=== PATIENT | male | born 1935 | race Caucasian/White ===

== ENCOUNTER 2017-11-16 08:10 | Inpatient (IN) | payer OTHER ==
[~2017-11-16] VITALS: Ht 172.7 cm; Wt 57.7 kg
[~2017-11-16 08:10] MED LIST: ADULT ASPIRIN R81 MG PO; Folvite PO; KEPPRA500 MG PO; LOW DOSE ASPIRI81 M2 PO; OMEPRAZOLE20 MG PO; PROVENTIL HFA6.7 GM IH; PriLOSEC PO; TERAZOSIN HCL2 MG PO; Theragran PO; ZOCOR20 MG PO
[2017-11-16 09:55] LABS: BASOPHIL (%) 0.2 % (0-1); EOSINOPHIL (%) 0.6 % (0-5); EOSINOPHIL COUNT 0.1 K/uL (0-0.3); HEMATOCRIT 43.4 % (38.0-50.0); HEMOGLOBIN 14.3 G/DL (12.5-16.6); IMMATURE GRANULOCYTE (%) 0.2 % (0.0-0.7); LYMPHOCYTE (%) 9.4 % (15-42); LYMPHOCYTE COUNT 1.2 K/uL (1.0-2.8); MCH 30.6 PG (29.0-34.0); MCHC 32.9 G/DL (30.0-36.0); MCV 92.7 FL (86-99); MONOCYTE (%) 7.6 % (3-12); MONOCYTE COUNT 0.9 K/uL (0-0.8); NEUTROPHIL COUNT 10.1 K/uL (1.8-6.4); PLATELET COUNT 322 K/uL (156-360); RBC DIS.WIDTH-CV 13.5 % (11.8-14.6); RBC DIS.WIDTH-SD 45.8 % (39-53); RED BLOOD COUNT 4.68 M/uL (4.00-5.50); WHITE BLOOD COUNT 12.3 K/uL (4.1-10.2)
[2017-11-16 10:01] LABS: INTER. NORMALIZED RATIO 1.2
[2017-11-16 10:04] LABS: PTT 30.8 SEC (25-37)
[2017-11-16 10:08] LABS: CHLORIDE 109 mEq/L (99-109); POTASSIUM 4.5 mEq/L (3.7-5.4); SODIUM 145 mEq/L (136-147)
[2017-11-16 10:10] LABS: GLUCOSE 110 mg/dL (70-99)
[2017-11-16 10:14] LABS: CREATININE 1.1 mg/dL (0.6-1.3); GFR ESTIMATE (CALCULATED) > 59 mL/min/ (58.99-99999); UREA NITROGEN (BUN) 14 mg/dL (9-23)
[2017-11-16 10:20] LABS: TROP-I INTERPRETATION NEGATIVE; TROPONIN-I < 0.01 ng/mL (0.0-0.30)
[2017-11-16 14:52] LABS: THYROTROPIN (TSH) 1.2 MIU/L (0.4-5.5)
[2017-11-16] MEDS ORDERED: SPIRIVA1 INHALATI IH (15:20)
[2017-11-16] MEDS ORDERED: ATARAX10 MG PO (15:20)
[2017-11-16] MEDS ORDERED: GUAIFENESIN200 M2 PO (15:20)
[2017-11-16] MEDS ORDERED: B-1100 MG PO (15:21)
[2017-11-16] MEDS ORDERED: SYMBICORT60 INHALAT IH (15:21)
[2017-11-16] MEDS ORDERED: TYLENOL REGULA325 MG PO (15:21)
[2017-11-16] MEDS ORDERED: PAROXETINE HCL40 MG PO (15:21)
[2017-11-16] MEDS ORDERED: SIMVASTATIN20 MG PO (15:21)
[2017-11-16] MEDS ORDERED: ZANTAC150 MG PO (15:21)
[2017-11-16] MEDS ORDERED: STOOL SOFTENER240 MG PO (15:22)
[2017-11-16] MEDS ORDERED: THEO-24400 MG PO (15:22)
[2017-11-16] MEDS ORDERED: HYTRIN2 MG PO (15:22)
[2017-11-16] MEDS ORDERED: KEPPRA500 MG PO (15:23)
[2017-11-16] MEDS ORDERED: CLARITIN,ALAVAR10 MG PO (15:23)
[2017-11-16 15:42] VITALS: BP 131/80
[2017-11-16 16:17] LABS: TROP-I INTERPRETATION NEGATIVE; TROPONIN-I 0.02 ng/mL (0.0-0.30)
[2017-11-16 19:20] VITALS: BP 136/83
[2017-11-16 21:57] LABS: TROP-I INTERPRETATION NEGATIVE; TROPONIN-I 0.02 ng/mL (0.0-0.30)
[2017-11-17 00:08] VITALS: BP 112/66
[2017-11-17 03:18] VITALS: BP 92/56
[2017-11-17 06:48] LABS: CHLORIDE 105 MEQ/L (99-109); CREATININE 1.2 MG/DL (0.6-1.3); GFR ESTIMATE (CALCULATED) > 59 mL/min/ (58.99-99999); GLUCOSE 111 mg/dL (70-99); POTASSIUM 4.3 MEQ/L (3.7-5.4); SODIUM 142 MEQ/L (136-147); UREA NITROGEN (BUN) 18 mg/dL (9-23)
[2017-11-17 11:27] VITALS: BP 93/55
[2017-11-17 12:54] LABS: BASOPHIL (%) 0.5 % (0-1); BASOPHIL COUNT 0.1 K/uL (0-0.1); EOSINOPHIL (%) 0.9 % (0-5); EOSINOPHIL COUNT 0.1 K/uL (0-0.3); HEMATOCRIT 40.5 % (38.0-50.0); HEMOGLOBIN 12.5 G/DL (12.5-16.6); IMMATURE GRANULOCYTE (%) 0.2 % (0.0-0.7); LYMPHOCYTE COUNT 1.5 K/uL (1.0-2.8); MCHC 30.9 G/DL (30.0-36.0); MONOCYTE (%) 10.4 % (3-12); MONOCYTE COUNT 1.1 K/uL (0-0.8); NEUTROPHIL COUNT 7.7 K/uL (1.8-6.4); PLATELET COUNT 309 K/uL (156-360); RBC DIS.WIDTH-SD 49.4 % (39-53); RED BLOOD COUNT 4.17 M/uL (4.00-5.50); WHITE BLOOD COUNT 10.5 K/uL (4.1-10.2)
[2017-11-17 12:55] LABS: MCV 97.1 FL (86-99)
[2017-11-17 16:14] VITALS: BP 97/60
[2017-11-17 19:35] VITALS: BP 101/61
[2017-11-18 00:17] VITALS: BP 96/49
[2017-11-18 04:34] VITALS: BP 106/70
[2017-11-18 07:08] VITALS: BP 105/55
[2017-11-18 11:19] VITALS: BP 103/61
[2017-11-18 15:32] VITALS: BP 104/69
[2017-11-18 19:45] VITALS: BP 126/67
[2017-11-19] VITALS (7 sets, daily range): BP systolic 98–124; BP diastolic 56–78
[2017-11-19 05:52] LABS: BASOPHIL (%) 0.1 % (0-1); EOSINOPHIL (%) 0 % (0-5); HEMATOCRIT 36.5 % (38.0-50.0); HEMOGLOBIN 11.9 G/DL (12.5-16.6); IMMATURE GRANULOCYTE (%) 0.3 % (0.0-0.7); LYMPHOCYTE (%) 8.6 % (15-42); LYMPHOCYTE COUNT 0.9 K/uL (1.0-2.8); MCH 30.2 PG (29.0-34.0); MCHC 32.6 G/DL (30.0-36.0); MCV 92.6 FL (86-99); MONOCYTE (%) 7.1 % (3-12); MONOCYTE COUNT 0.7 K/uL (0-0.8); NEUTROPHIL (%) 83.9 % (45-76); NEUTROPHIL COUNT 8.4 K/uL (1.8-6.4); PLATELET COUNT 277 K/uL (156-360); RBC DIS.WIDTH-CV 13.5 % (11.8-14.6); RBC DIS.WIDTH-SD 46.1 % (39-53); RED BLOOD COUNT 3.94 M/uL (4.00-5.50)
[2017-11-19 06:11] LABS: ALBUMIN 3.2 G/DL (3.2-4.8); ALKALINE PHOSPHATASE 41 IU/L (3-129); ALT (GPT) 8 IU/L (3-49); AST (GOT) 10 IU/L (2-34); CHLORIDE 101 MEQ/L (99-109); CREATININE 1.1 MG/DL (0.6-1.3); GFR ESTIMATE (CALCULATED) > 59 mL/min/ (58.99-99999); GLUCOSE 137 mg/dL (70-99); POTASSIUM 4.7 MEQ/L (3.7-5.4); SODIUM 137 MEQ/L (136-147); TOTAL BILIRUBIN 0.4 MG/DL (0.0-1.0); TOTAL PROTEIN 5.7 G/DL (6.4-8.3); UREA NITROGEN (BUN) 27 mg/dL (9-23)
[2017-11-20 03:25] VITALS: BP 110/71
[2017-11-20 07:37] VITALS: BP 114/71
[2017-11-20 11:46] VITALS: BP 124/74
[2017-11-20] MEDS ORDERED: LOPRESSOR25 MG PO (15:17)
[2017-11-20] MEDS ORDERED: POLYETHYLENE GL17 GM PO (15:17)
[2017-11-20] MEDS ORDERED: LEVOFLOXACIN500 MG PO (15:17)
== END 2017-11-20 17:32 | disposition home or self-care (01) | DRG 190 ==
LOC: EME 08:10 → 5WEST 13:44 → EDOF 13:44 → ENRESERV 13:47 → 5WEST 15:31 → ENPENDDIS 11-20 → 5WEST 11-20 17:32
PROVIDERS: Emergency Medicine; Hospitalist; Internal Medicine
DX: J44.0 Chronic obstructive pulmonary disease with (acute) lower respiratory infection (principal); J96.01 Acute respiratory failure with hypoxia; J44.9 Chronic obstructive pulmonary disease, unspecified; I42.0 Dilated cardiomyopathy; J98.09 Other diseases of bronchus, not elsewhere classified; I48.2 Chronic atrial fibrillation; J20.9 Acute bronchitis, unspecified; I10 Essential (primary) hypertension; K21.9 Gastro-esophageal reflux disease without esophagitis; K59.00 Constipation, unspecified; F10.10 Alcohol abuse, uncomplicated; R91.1 Solitary pulmonary nodule; K56.41 Fecal impaction; Z79.899 Other long term (current) drug therapy; Z87.891 Personal history of nicotine dependence; Z86.79 Personal history of other diseases of the circulatory system; Z79.51 Long term (current) use of inhaled steroids; Z68.1 Body mass index [BMI] 19.9 or less, adult
CPT/HCPCS: 71250; 74021; 74022; 80048; 80053; 80198; 83880; 84443; 84484; 85025; 85610; 85730; 93005; 93306; 94640; 94640 76; 94667; 94668; 94760; 94799; 99202; 99281; 99285; G0378; J1644; J2405; J2920; J7512

== ENCOUNTER 2017-12-01 09:23 | Inpatient (IN) | payer OTHER ==
[~2017-12-01] VITALS: Ht 172.7 cm; Wt 56.2 kg
[~2017-12-01 09:23] MED LIST changes: +ATARAX10 MG PO; +B-1100 MG PO; +CLARITIN,ALAVAR10 MG PO; +GUAIFENESIN200 M2 PO; +HYTRIN2 MG PO; +LEVOFLOXACIN500 MG PO; +LOPRESSOR25 MG PO; +PAROXETINE HCL40 MG PO; +POLYETHYLENE GL17 GM PO; +SIMVASTATIN20 MG PO; +SPIRIVA1 INHALATI IH; +STOOL SOFTENER240 MG PO; +SYMBICORT60 INHALAT IH; +THEO-24400 MG PO; +TYLENOL REGULA325 MG PO; +ZANTAC150 MG PO
[2017-12-01 10:17] LABS: BASOPHIL (%) 0.2 % (0-1); EOSINOPHIL (%) 0.1 % (0-5); HEMATOCRIT 46.7 % (38.0-50.0); IMMATURE GRANULOCYTE (%) 0.3 % (0.0-0.7); LYMPHOCYTE (%) 7.7 % (15-42); LYMPHOCYTE COUNT 0.9 K/uL (1.0-2.8); MCH 30.5 PG (29.0-34.0); MCHC 33.2 G/DL (30.0-36.0); MCV 91.9 FL (86-99); MONOCYTE (%) 7.7 % (3-12); MONOCYTE COUNT 0.9 K/uL (0-0.8); NEUTROPHIL COUNT 9.7 K/uL (1.8-6.4); PLATELET COUNT 291 K/uL (156-360); RBC DIS.WIDTH-CV 14.5 % (11.8-14.6); RBC DIS.WIDTH-SD 47.8 % (39-53); WHITE BLOOD COUNT 11.5 K/uL (4.1-10.2)
[2017-12-01 10:21] LABS: INTER. NORMALIZED RATIO 1.2
[2017-12-01 10:23] LABS: PTT 31.1 SEC (25-37)
[2017-12-01 10:26] LABS: CHLORIDE 105 mEq/L (99-109); MAGNESIUM 2.2 mg/dL (1.3-2.7); POTASSIUM 4.4 mEq/L (3.7-5.4); SODIUM 142 mEq/L (136-147)
[2017-12-01 10:27] LABS: GLUCOSE 145 mg/dL (70-99); HEMOGLOBIN 15.5 G/DL (12.5-16.6); RED BLOOD COUNT 5.08 M/uL (4.00-5.50)
[2017-12-01 10:31] LABS: GFR ESTIMATE (CALCULATED) > 59 mL/min/ (58.99-99999)
[2017-12-01 10:32] LABS: UREA NITROGEN (BUN) 19 mg/dL (9-23)
[2017-12-01 10:39] LABS: TROP-I INTERPRETATION NEGATIVE; TROPONIN-I 0.04 ng/mL (0.0-0.30)
[2017-12-01] MEDS ORDERED: FLONASE16 G1 BOTH NARES (11:41)
[2017-12-01 15:05] LABS: THEOPHYLLINE 18.3 MCG/ML (10-20)
[2017-12-01 17:50] VITALS: BP 122/83
[2017-12-01 17:54] VITALS: BP 122/83
[2017-12-01 18:18] LABS: TROP-I INTERPRETATION NEGATIVE; TROPONIN-I 0.03 ng/mL (0.0-0.30)
[2017-12-01 19:50] VITALS: BP 134/82
[2017-12-01 23:38] LABS: TROP-I INTERPRETATION NEGATIVE; TROPONIN-I 0.02 ng/mL (0.0-0.30)
[2017-12-02] VITALS (8 sets, daily range): BP systolic 131–151; BP diastolic 62–84
[2017-12-02 05:54] LABS: CHLORIDE 102 MEQ/L (99-109); GFR ESTIMATE (CALCULATED) > 59 mL/min/ (58.99-99999); GLUCOSE 149 mg/dL (70-99); POTASSIUM 4.3 MEQ/L (3.7-5.4); SODIUM 135 MEQ/L (136-147)
[2017-12-02 05:59] LABS: TROP-I INTERPRETATION NEGATIVE; TROPONIN-I 0.02 ng/mL (0.0-0.30)
[2017-12-02 06:08] LABS: UREA NITROGEN (BUN) 29 mg/dL (9-23)
[2017-12-02 14:17] LABS: TROP-I INTERPRETATION NEGATIVE; TROPONIN-I 0.03 ng/mL (0.0-0.30)
[2017-12-03 04:22] VITALS: BP 135/68
[2017-12-03 06:11] LABS: CHLORIDE 101 MEQ/L (99-109); CREATININE 1.2 MG/DL (0.6-1.3); GFR ESTIMATE (CALCULATED) > 59 mL/min/ (58.99-99999); GLUCOSE 167 mg/dL (70-99); POTASSIUM 4.7 MEQ/L (3.7-5.4); SODIUM 134 MEQ/L (136-147); UREA NITROGEN (BUN) 43 mg/dL (9-23)
[2017-12-03 06:26] LABS: HEMATOCRIT 41.5 % (38.0-50.0); MCV 90.6 FL (86-99); PLATELET COUNT 282 K/uL (156-360); RBC DIS.WIDTH-CV 14.3 % (11.8-14.6); RBC DIS.WIDTH-SD 46.6 % (39-53); RED BLOOD COUNT 4.58 M/uL (4.00-5.50); WHITE BLOOD COUNT 7.7 K/uL (4.1-10.2)
[2017-12-03 06:29] LABS: HEMOGLOBIN 13.3 G/DL (12.5-16.6)
[2017-12-03 06:55] VITALS: BP 144/66
[2017-12-03 11:06] VITALS: BP 150/70
[2017-12-03 14:52] VITALS: BP 140/64
[2017-12-03 20:28] VITALS: BP 151/78
[2017-12-04 03:45] VITALS: BP 133/61
[2017-12-04 07:05] LABS: CHLORIDE 102 MEQ/L (99-109); CREATININE 1.1 MG/DL (0.6-1.3); GFR ESTIMATE (CALCULATED) > 59 mL/min/ (58.99-99999); GLUCOSE 153 mg/dL (70-99); POTASSIUM 5.5 MEQ/L (3.7-5.4); SODIUM 135 MEQ/L (136-147); UREA NITROGEN (BUN) 50 mg/dL (9-23)
[2017-12-04 07:29] VITALS: BP 134/69
[2017-12-04 11:53] VITALS: BP 149/67
[2017-12-04 16:00] VITALS: BP 140/72
[2017-12-04 19:28] VITALS: BP 144/66
[2017-12-04 23:17] VITALS: BP 162/72
[2017-12-05] VITALS (17 sets, daily range): BP systolic 109–170; BP diastolic 63–86
[2017-12-05 06:28] LABS: HEMATOCRIT 39.7 % (38.0-50.0); HEMOGLOBIN 13.1 G/DL (12.5-16.6); MCH 29.8 PG (29.0-34.0); MCV 90.4 FL (86-99); PLATELET COUNT 250 K/uL (156-360); RBC DIS.WIDTH-CV 14.3 % (11.8-14.6); RBC DIS.WIDTH-SD 46.9 % (39-53); RED BLOOD COUNT 4.39 M/uL (4.00-5.50); WHITE BLOOD COUNT 9.6 K/uL (4.1-10.2)
[2017-12-05 10:15] LABS: CHLORIDE 101 MEQ/L (99-109); CREATININE 1.1 MG/DL (0.6-1.3); GFR ESTIMATE (CALCULATED) > 59 mL/min/ (58.99-99999); GLUCOSE 194 mg/dL (70-99); POTASSIUM 5.3 MEQ/L (3.7-5.4); SODIUM 136 MEQ/L (136-147); UREA NITROGEN (BUN) 46 mg/dL (9-23)
[2017-12-05 11:14] LABS: BASE EXCESS 3.4 mEq/L (-3 to +3); BICARBONATE 28.5 mEq/L (22-26); CARBOXY HGB 2.4 % (0-5); COMMENTS - BLOOD GASES A+C+; DEVICE NC; METHEMOGLOBIN 1.4 % (0-1.5); O2 FLOW 2 L/MIN; PCO2 44 mm Hg (35-45); PO2 92 mm Hg (80-100); SITE LR; TOTAL RESP RATE 34 resp/min; pH 7.42 (7.35-7.45)
[2017-12-06] VITALS (24 sets, daily range): BP systolic 136–174; BP diastolic 59–113
[2017-12-06 07:08] LABS: HEMATOCRIT 40.1 % (38.0-50.0); MCH 29.2 PG (29.0-34.0); MCHC 32.4 G/DL (30.0-36.0); MCV 90.1 FL (86-99); PLATELET COUNT 226 K/uL (156-360); RBC DIS.WIDTH-CV 14.3 % (11.8-14.6); RBC DIS.WIDTH-SD 46.8 % (39-53); RED BLOOD COUNT 4.45 M/uL (4.00-5.50); WHITE BLOOD COUNT 9.1 K/uL (4.1-10.2)
[2017-12-06 07:48] LABS: CHLORIDE 103 MEQ/L (99-109); CREATININE 0.9 MG/DL (0.6-1.3); GFR ESTIMATE (CALCULATED) > 59 mL/min/ (58.99-99999); GLUCOSE 164 mg/dL (70-99); MAGNESIUM 2.4 mg/dl (1.3-2.7); PHOSPHORUS 2.9 mg/dL (2.5-4.9); POTASSIUM 4.9 MEQ/L (3.7-5.4); SODIUM 140 MEQ/L (136-147); UREA NITROGEN (BUN) 37 mg/dL (9-23)
[2017-12-07] VITALS (25 sets, daily range): BP systolic 121–181; BP diastolic 54–90
[2017-12-07 11:22] LABS: BASE EXCESS 7.5 mEq/L (-3 to +3); CARBOXY HGB 2.1 % (0-5); METHEMOGLOBIN 1.5 % (0-1.5); PCO2 43 mm Hg (35-45); PO2 86 mm Hg (80-100); pH 7.48 (7.35-7.45)
[2017-12-07 11:23] LABS: COMMENTS - BLOOD GASES A+C+; DEVICE NC; O2 FLOW 2 L/MIN; SITE RR
[2017-12-08] VITALS (10 sets, daily range): BP systolic 128–157; BP diastolic 56–89
[2017-12-09 03:54] VITALS: BP 137/65
[2017-12-09 06:17] LABS: BASOPHIL (%) 0.1 % (0-1); EOSINOPHIL (%) 0 % (0-5); HEMATOCRIT 42.6 % (38.0-50.0); HEMOGLOBIN 14.1 G/DL (12.5-16.6); IMMATURE GRANULOCYTE (%) 0.9 % (0.0-0.7); LYMPHOCYTE COUNT 0.3 K/uL (1.0-2.8); MCH 29.4 PG (29.0-34.0); MCHC 33.1 G/DL (30.0-36.0); MCV 88.8 FL (86-99); MONOCYTE (%) 2.9 % (3-12); MONOCYTE COUNT 0.3 K/uL (0-0.8); NEUTROPHIL (%) 93.1 % (45-76); NEUTROPHIL COUNT 8.9 K/uL (1.8-6.4); PLATELET COUNT 260 K/uL (156-360); RBC DIS.WIDTH-SD 45.3 % (39-53); WHITE BLOOD COUNT 9.6 K/uL (4.1-10.2)
[2017-12-09 06:45] LABS: CHLORIDE 98 MEQ/L (99-109); CREATININE 0.9 MG/DL (0.6-1.3); GFR ESTIMATE (CALCULATED) > 59 mL/min/ (58.99-99999); GLUCOSE 174 mg/dL (70-99); POTASSIUM 4.8 MEQ/L (3.7-5.4); SODIUM 137 MEQ/L (136-147); UREA NITROGEN (BUN) 41 mg/dL (9-23)
[2017-12-09 07:41] VITALS: BP 160/72
[2017-12-09 11:32] VITALS: BP 138/76
[2017-12-09 15:00] VITALS: BP 133/66
[2017-12-09 19:39] VITALS: BP 149/87
[2017-12-09 23:56] VITALS: BP 137/65
[2017-12-10 00:31] LABS: C DIFF TOXIN NEGATIVE (NEGATIVE)
[2017-12-10 04:47] VITALS: BP 131/62
[2017-12-10 07:07] VITALS: BP 131/64
[2017-12-10] MEDS ORDERED: CEFDINIR300 MG PO (11:24)
[2017-12-10] MEDS ORDERED: PREDNISONE10 MG PO (11:24)
[2017-12-10] MEDS ORDERED: DILTIAZEM 24HR240 MG PO (11:24)
[2017-12-10] MEDS ORDERED: MORPHINE CON20 MG/M1 SL (11:24)
[2017-12-10] MEDS ORDERED: HYOSCYAMINE0.125 M1 PO (15:46)
[2017-12-10] MEDS ORDERED: MORPHINE CON20 MG/M1 PO (15:46)
[2017-12-10] MEDS ORDERED: LORAZEPAM0.5 MG PO (15:46)
[2017-12-11] VITALS: BP 167/93
[2017-12-11 07:53] VITALS: BP 168/81
[2017-12-11] MEDS ORDERED: MORPHINE CON20 MG/M1 PO (14:00)
== END 2017-12-11 16:32 | disposition home or self-care (01) | DRG 189 ==
LOC: EME 09:23 → 4EAST 14:51 → 4WEST 14:51 → EDOF 14:51 → ENRESERV 14:54 → 4EAST 17:29 → CANRESERV 12-03 14:18 → ENRESERV 12-03 14:18 → 5SOUTH 12-03 20:17 → ENRESERV 12-05 11:58 → 4WEST 12-05 12:09 → ENRESERV 12-05 12:09 → 4WEST 12-08 08:06 → ENRESERV 12-08 08:11 → 5SOUTH 12-08 12:47
PROVIDERS: Emergency Medicine; Family Medicine; Hospitalist; Internal Medicine; Internal Medicine Cardiovascular Disease; Internal Medicine Pulmonary Disease
DX: J96.21 Acute and chronic respiratory failure with hypoxia (principal); I48.2 Chronic atrial fibrillation; J44.1 Chronic obstructive pulmonary disease with (acute) exacerbation; J43.2 Centrilobular emphysema; R91.1 Solitary pulmonary nodule; R53.81 Other malaise; F10.10 Alcohol abuse, uncomplicated; F43.23 Adjustment disorder with mixed anxiety and depressed mood; I25.10 Atherosclerotic heart disease of native coronary artery without angina pectoris; I10 Essential (primary) hypertension; E44.1 Mild protein-calorie malnutrition; I42.9 Cardiomyopathy, unspecified; J20.9 Acute bronchitis, unspecified; G31.84 Mild cognitive impairment of uncertain or unknown etiology; G40.909 Epilepsy, unspecified, not intractable, without status epilepticus; Z51.5 Encounter for palliative care; Z66 Do not resuscitate; Z68.1 Body mass index [BMI] 19.9 or less, adult; Z75.1 Person awaiting admission to adequate facility elsewhere; Z87.891 Personal history of nicotine dependence; Z74.01 Bed confinement status; Z79.899 Other long term (current) drug therapy; I25.2 Old myocardial infarction; F10.20 Alcohol dependence, uncomplicated
CPT/HCPCS: 36600; 71045; 71250; 80048; 80198; 82803; 82948; 83605; 83735; 84100; 84484; 85025; 85027; 85610; 85730; 87040; 87493; 87641; 93005; 94002; 94640; 94640 76; 94644; 94667; 94668; 94760; 94799; 97530 GP; 99202; 99281; 99285; J0696; J1100; J1160; J1815; J2405; J2690; J2930; J3010; J3475; J7050; J7512; J7644